=== PATIENT | female | born 1955 | race African-American/Black ===

== ENCOUNTER 2018-12-10 08:13 | Outpatient (CLI) | payer OTHER | END 2018-12-10 08:28 | disposition home or self-care (01) | LOC: RAD 08:13 | DX: Z12.31 Encounter for screening mammogram for malignant neoplasm of breast (principal); Z87.898 Personal history of other specified conditions ==

== ENCOUNTER → 2018-12-10 15:35 | Outpatient (CLI) | payer OTHER | END | disposition home or self-care (01) | LOC: LAB | DX: D64.89 Other specified anemias (principal); I10 Essential (primary) hypertension; E11.9 Type 2 diabetes mellitus without complications; E78.00 Pure hypercholesterolemia, unspecified; N39.0 Urinary tract infection, site not specified; E03.8 Other specified hypothyroidism; E11.69 Type 2 diabetes mellitus with other specified complication; E11.29 Type 2 diabetes mellitus with other diabetic kidney complication; Z12.31 Encounter for screening mammogram for malignant neoplasm of breast; R19.5 Other fecal abnormalities; E55.9 Vitamin D deficiency, unspecified ==